=== PATIENT | male | born 1950 ===

== ENCOUNTER → 2019-05-20 | Outpatient (CLI) | payer MEDICARE, OTHER ==
--- NOTE | 2019-05-21 00:21 | RADRPT ---
Echocardiogram Report Patient Name: MARSHAL CASTILLOPatient ID: [id number] : 1950 (69y 3m)Study Date: 05/20/2019 11:25:03 AM Gender: MAccession #: [id number] Tech: Evens Mosquera [facility] Location: EKG Ref.Physician: OMI TORREZ Height(Cm): BSA: Weight(Kg): Quality: AdequateOrder Physician: OMI TORREZ Account #: Procedures: Echocardiographic Report: Transthoracic echocardiogram with complete 2D, M-Mode, and doppler examination. Indications: HTN. Measurements: 2D/M Mode Doppler Measurement Value Normal Range Measurement Value Normal Range LVIDd 2D 4.5 [ 4.2 - 5.8 ] cm AV Peak Nathan 0.8 [ 100.0 - 170.0 ] cm/sec LVIDs 2D 3.4 [ 2.5 - 4.0 ] cm AV Peak PG 3.0 [ 2.0 - 9.0 ] mmHg LVPWd 2D 1.3 [ 0.6 - 1.0 ] cm LVOT Peak Natahn 0.6 [ 70.0 - 110.0 ] cm/sec IVSd 2D 1.9 [ 0.6 - 1.0 ] cm LVOT Peak PG 1.0 [ 2.0 - 6.0 ] mmHg AoR Diam 2D 3.6 [ 2.6 - 3.4 ] cm MV E Peak Nathan 0.7 [ 60.0 - 130.0 ] cm/sec EDV 2D 90.5 [ 62.0 - 150.0 ] ml MV A Peak Nathan 0.5 [ 100.0 - 120.0 ] cm/sec ESV 2D 46.8 [ 21.0 - 61.0 ] ml MV E/A 1.4 [ 0.8 - 1.5 ] ratio EF 2D 48.3 [ 52.0 - 72.0 ] percent MV Decel Time 261 [ 104 - 258 ] msec LA Dimen 2D 4.9 [ 3.0 - 4.0 ] cm Lat E` Nathan 0.2 [ 10.0 - 15.0 ] cm/sec Lateral E/E` 4.3 [ 1.0 - 2.0 ] ratio Med E` Nathan 0.1 cm/sec MV E/A 1.4 [ 0.8 - 1.5 ] ratio TR Peak Nathan 2.3 [ 100.0 - 280.0 ] cm/sec TR Peak PG 22.0 mmHg RVSP 25.0 [ 10.0 - 36.0 ] mmHg Findings: Left Ventricle: Normal left ventricular cavity size. Sigmoid septum. Mild global left ventricular systolic dysfunction. Ejection fraction is visually estimated at 45 %. Tissue Doppler/Mitral Doppler indices are indeterminate in this study due to the presence of atrial fibrillation. Right Ventricle: Normal right ventricular systolic function. Moderate enlargement of right ventricle. Left Atrium: There is moderate enlargement of left atrium. Right Atrium: There is mild enlargement of right atrium. Mitral Valve: Mitral valve leaflets appear mildly thickened. Mild mitral annular calcification. Mild mitral valve regurgitation. Aortic Valve: No hemodynamically significant aortic stenosis by doppler. Aortic cusps appear mildly calcified. Trace aortic valve regurgitation. Tricuspid Valve: Normal appearance of the tricuspid valve. The estimated Peak RVSP is 25 mmHg. There is mild tricuspid regurgitation. Pericardium: Normal pericardium with no significant pericardial effusion. Aorta: Normal aortic root. IVC: Normal size and normal respiratory collapse consistent with normal right atrial pressure. Conclusions: Normal left ventricular cavity size. Sigmoid septum. Mild global left ventricular systolic dysfunction. Ejection fraction is visually estimated at 45 %. Tissue Doppler/Mitral Doppler indices are indeterminate in this study due to the presence of atrial fibrillation. n. There is moderate enlargement of left atrium. There is mild enlargement of right atrium. Mitral valve leaflets appear mildly thickened. Mild mitral annular calcification. Mild mitral valve regurgitation. No hemodynamically significant aortic stenosis by doppler. Aortic cusps appear mildly calcified. Trace aortic valve regurgitation. Normal appearance of the tricuspid valve. The estimated Peak RVSP is 25 mmHg. There is mild tricuspid regurgitation. Electronically Signed By: Omi Torrez 2019-05-20 19:39:58 PDT
== END | disposition home or self-care (01) ==
LOC: EKG 10:45
PROVIDERS: ATTEND Internal Medicine
DX: I10 Essential (primary) hypertension (principal)
CPT/HCPCS: 93306